=== PATIENT | male | born 1945 | race Caucasian/White ===

== ENCOUNTER 2017-02-15 17:36 | Observation (INO) | payer MEDICARE ==
[~2017-02-15] VITALS: Ht 175.3 cm; Wt 90.5 kg
[~2017-02-15 17:36] MED LIST: ASPI325T; MELA3TAB14; RANI150
[2017-02-15 17:37] VITALS: BP 146/67; PULSE 95; RESP 20; TEMP 98.4; O2SAT 88
[2017-02-15 17:47] VITALS: BP 154/73; PULSE 89; RESP 24; O2SAT 87
[2017-02-15] MEDS ORDERED: VENTAER INH (17:53)
[2017-02-15] MEDS ORDERED: FLUT1INH7 INH (17:53)
[2017-02-15] MEDS ORDERED: LIPI40TA PO (17:53)
[2017-02-15] MEDS ORDERED: OMEP20TA PO (17:53)
[2017-02-15] MEDS ORDERED: IPRASOL INH (17:53)
[2017-02-15 17:54] VITALS: O2SAT 91
--- NOTE | 2017-02-15 18:09 | PD ---
HPI Chief Complaint: Respiratory Symptoms Time Seen by Provider: 17:58 Travel History International Travel<30 days: No Contact w/Intl Traveler<30days: No Traveled to known affect area: No History of Present Illness HPI 71yo M with PMH of COPD, former alcohol abuse presents to the ED with c/o sob for 1 week but worst today. Pt went to PMD today and was sent here after given 1 nebulizer treatment and 1 dose of rocephin. Pt was hypoxic and PMD was concern about pneumonia. Pt has been feeling sick and saw urgent care in [place] and finished his medrol dose pack yesterday. Pt returned from [place] 3 days ago. Intermittent chest tightness. +Cough. Denies any fever, n/v, abdominal pain, focal weakness or numbness, history of PE/DVT. Pt does not use oxygen at home and was saturating at 90-92% on 4L NC. Pt was 87% on RA. PFSH Past Medical History High Cholesterol: Yes COPD: Yes GERD: Yes Immunizations Current: Yes Influenza Vaccination: Yes Past Surgical History Abdominal Surgery: Yes (FOR ANAL FISTULA) Body Medical Devices: ANAL FISTULA Cholecystectomy: Yes Social History Alcohol Use: No Tobacco Use: No Substance Use: No (hx etoh abuse) Allergies-Medications (Allergen,Severity, Reaction): Coded Allergies: No Known Allergies (Verified , 02/15/17) Reported Meds & Prescriptions Reported Meds & Active Scripts Active Reported Ventolin Hfa 18 GM Inh (Albuterol Sulfate) 90 Mcg/Act Aer 2 Puff INH Q4H PRN Breo Ellipta Inh (Fluticasone/Vilanterol) 200-25 Mcg/Act Inh 1 Puff INH DAILY Use daily at the same time. Duoneb (Ipratropium-Albuterol Neb) 0.5-2.5 Mg/3 Ml Neb 1 Nebule INH Q6HR NEB Omeprazole 20 Mg Tab 20 Mg PO DAILY Lipitor (Atorvastatin Calcium) 40 Mg Tab 40 Mg PO HS Review of Systems Except as stated in HPI: all other systems reviewed are Neg Physical Exam Narrative GENERAL: 71yo M in mild distress. SKIN: Warm and dry. HEAD: Atraumatic. Normocephalic. EYES: Pupils equal and round. No scleral icterus. No injection or drainage. ENT: No nasal bleeding or discharge. Mucous membranes pink and moist. NECK: Trachea midline. No JVD. CARDIOVASCULAR: Regular rate and rhythm. No murmur appreciated. RESPIRATORY: Crackles in left lower lung. No wheezing. GASTROINTESTINAL: Abdomen soft, non-tender, nondistended. Hepatic and splenic margins not palpable. MUSCULOSKELETAL: No obvious deformities. No clubbing. No cyanosis. Trace lower ext edema. No calf tenderness. NEUROLOGICAL: Awake and alert. No obvious cranial nerve deficits. Motor grossly within normal limits. Normal speech. PSYCHIATRIC: Appropriate mood and affect; insight and judgment normal. Data Data Last Documented VS Vital Signs Date Time Temp Pulse Resp B/P Pulse Ox O2 Delivery O2 Flow Rate FiO2 02/15/17 19:22 82 18 140/63 92 Nasal Cannula 2 02/15/17 17:37 98.4 Orders Complete Blood Count With Diff (02/15/17 18:04) Basic Metabolic Panel (Bmp) (02/15/17 18:04) B-Type Natriuretic Peptide (02/15/17 18:04) Act Partial Throm Time (Ptt) (02/15/17 18:04) Prothrombin Time / Inr (Pt) (02/15/17 18:04) Magnesium (Mg) (02/15/17 18:04) Ckmb (Isoenzyme) Profile (02/15/17 18:04) Troponin I (02/15/17 18:04) Influenzae A/B Antigen (02/15/17 18:04) Blood Culture (02/15/17 18:04) Iv Access Insert/Monitor (02/15/17 18:04) Electrocardiogram (02/15/17 18:04) Ecg Monitoring (02/15/17 18:04) Oximetry (02/15/17 18:04) Oxygen Administration (02/15/17 18:04) Chest, Single Ap (02/15/17 18:04) Sodium Chloride 0.9% Flush (Ns Flush) (02/15/17 18:15) Methylprednisolone So Succ Inj (Solumedr (02/15/17 18:15) Albuterol-Ipratropium Neb (Duoneb Neb) (02/15/17 18:15) Lactic Acid Sepsis Protocol (02/15/17 18:04) Arterial Blood Gas (Abg) (02/15/17 ) Ct Pulmonary Angiogram (02/15/17 ) Iohexol 350 Inj (Omnipaque 350 Inj) (02/15/17 20:12) Admit Order (Ed Use Only) (02/15/17 20:36) Labs Laboratory Tests Test 02/15/17 02/15/17 02/15/17 18:10 18:12 18:20 White Blood Count 9.7 TH/MM3 Red Blood Count 4.30 MIL/MM3 Hemoglobin 13.3 GM/DL Hematocrit 40.8 % Mean Corpuscular Volume 94.8 FL Mean Corpuscular Hemoglobin 31.0 PG Mean Corpuscular Hemoglobin 32.6 % Concent Red Cell Distribution Width 13.5 % Platelet Count 180 TH/MM3 Mean Platelet Volume 9.5 FL Neutrophils (%) (Auto) 57.3 % Lymphocytes (%) (Auto) 32.2 % Monocytes (%) (Auto) 8.2 % Eosinophils (%) (Auto) 1.9 % Basophils (%) (Auto) 0.4 % Neutrophils # (Auto) 5.6 TH/MM3 Lymphocytes # (Auto) 3.1 TH/MM3 Monocytes # (Auto) 0.8 TH/MM3 Eosinophils # (Auto) 0.2 TH/MM3 Basophils # (Auto) 0.0 TH/MM3 CBC Comment DIFF FINAL Differential Comment Prothrombin Time 11.3 SEC Prothromb Time International 1.0 RATIO Ratio Activated Partial 24.3 SEC Thromboplast Time Sodium Level 140 MEQ/L Potassium Level 3.7 MEQ/L Chloride Level 104 MEQ/L Carbon Dioxide Level 27.2 MEQ/L Anion Gap 9 MEQ/L Blood Urea Nitrogen 22 MG/DL Creatinine 1.15 MG/DL Estimat Glomerular Filtration 63 ML/MIN Rate Random Glucose 107 MG/DL Calcium Level 8.7 MG/DL Magnesium Level 2.0 MG/DL Total Creatine Kinase 72 U/L Troponin I LESS THAN 0.02 NG/ML B-Type Natriuretic Peptide 24 PG/ML Lactic Acid Level 1.1 mmol/L Blood Gas Puncture Site RT RADIAL Blood Gas Patient Temperature 98.6 Blood Gas HCO3 25 mmol/L Blood Gas Base Excess 1.2 mmol/L Blood Gas Oxygen Saturation 91 % Arterial Blood pH 7.44 Arterial Blood Partial 37 mmHg Pressure CO2 Arterial Blood Partial 87 mmHG Pressure O2 Arterial Blood Oxygen Content 17.4 Vol % Arterial Blood 0.8 % Carboxyhemoglobin Arterial Blood Methemoglobin 0.6 % Blood Gas Hemoglobin 13.5 G/DL Oxygen Delivery Device NASAL CANNULA Blood Gas Liter Flow 4 L/M MDM Medical Decision Making Medical Screen Exam Complete: Yes Emergency Medical Condition: Yes Interpretation(s) EKG: NSR 80bpm. Normal axis. Q wave III. No ST segment elevation or depression. Laboratory Tests Test 02/15/17 02/15/17 02/15/17 18:10 18:12 18:20 White Blood Count 9.7 TH/MM3 (4.0-11.0) Red Blood Count 4.30 MIL/MM3 (4.50-5.90) Hemoglobin 13.3 GM/DL (13.0-17.0) Hematocrit 40.8 % (39.0-51.0) Mean Corpuscular Volume 94.8 FL (80.0-100.0) Mean Corpuscular Hemoglobin 31.0 PG (27.0-34.0) Mean Corpuscular Hemoglobin 32.6 % Concent (32.0-36.0) Red Cell Distribution Width 13.5 % (11.6-17.2) Platelet Count 180 TH/MM3 (150-450) Mean Platelet Volume 9.5 FL (7.0-11.0) Neutrophils (%) (Auto) 57.3 % (16.0-70.0) Lymphocytes (%) (Auto) 32.2 % (9.0-44.0) Monocytes (%) (Auto) 8.2 % (0.0-8.0) Eosinophils (%) (Auto) 1.9 % (0.0-4.0) Basophils (%) (Auto) 0.4 % (0.0-2.0) Neutrophils # (Auto) 5.6 TH/MM3 (1.8-7.7) Lymphocytes # (Auto) 3.1 TH/MM3 (1.0-4.8) Monocytes # (Auto) 0.8 TH/MM3 (0-0.9) Eosinophils # (Auto) 0.2 TH/MM3 (0-0.4) Basophils # (Auto) 0.0 TH/MM3 (0-0.2) CBC Comment DIFF FINAL Differential Comment Prothrombin Time 11.3 SEC (9.8-11.6) Prothromb Time International 1.0 RATIO Ratio Activated Partial 24.3 SEC Thromboplast Time (24.3-30.1) Sodium Level 140 MEQ/L (136-145) Potassium Level 3.7 MEQ/L (3.5-5.1) Chloride Level 104 MEQ/L (98-107) Carbon Dioxide Level 27.2 MEQ/L (21.0-32.0) Anion Gap 9 MEQ/L (5-15) Blood Urea Nitrogen 22 MG/DL (7-18) Creatinine 1.15 MG/DL (0.60-1.30) Estimat Glomerular Filtration 63 ML/MIN (>89) Rate Random Glucose 107 MG/DL (74-106) Calcium Level 8.7 MG/DL (8.5-10.1) Magnesium Level 2.0 MG/DL (1.5-2.5) Total Creatine Kinase 72 U/L (39-308) Troponin I LESS THAN 0.02 NG/ML (0.02-0.05) B-Type Natriuretic Peptide 24 PG/ML (0-100) Lactic Acid Level 1.1 mmol/L (0.4-2.0) Blood Gas Puncture Site RT RADIAL Blood Gas Patient Temperature 98.6 Blood Gas HCO3 25 mmol/L (22-26) Blood Gas Base Excess 1.2 mmol/L (-2-2) Blood Gas Oxygen Saturation 91 % (90-100) Arterial Blood pH 7.44 (7.380-7.420) Arterial Blood Partial 37 mmHg (38-42) Pressure CO2 Arterial Blood Partial 87 mmHG Pressure O2 (61-120) Arterial Blood Oxygen Content 17.4 Vol % (12.0-20.0) Arterial Blood 0.8 % (0-4) Carboxyhemoglobin Arterial Blood Methemoglobin 0.6 % (0-2) Blood Gas Hemoglobin 13.5 G/DL (12.0-16.0) Oxygen Delivery Device NASAL CANNULA Blood Gas Liter Flow 4 L/M Last Impressions Chest X-Ray 02/15/17 1804 Signed Impressions: Service Date/Time: Wednesday, February 15, 2017 18:14 - CONCLUSION: No acute cardiopulmonary disease. Chandrakant Cortes MD CT Angiography 02/15/17 0000 Signed Impressions: Service Date/Time: Wednesday, February 15, 2017 19:59 - CONCLUSION: Unremarkable study. Chandrakant Cortes MD Differential Diagnosis Pneumonia vs. COPD exacerbation vs. PE vs. ACS Narrative Course 71yo M with COPD sent from PMD's office for hypoxia and sob. Pt was given dose of rocephin at his PMD's office. Pt was initially saturating at 87% on RA and was placed on 4L NC and saturating at 92%. Pt has mild coarse breath sounds but not wheezing on my exam. Given duonebs x3 and methylprednisolone 125mg IV and states he feels better. CXR showed no acute cardiopulmonary disease. Pt has had recent travel so CT angio ordered to r/o PE. CT angio showed no PE. Pt likely hypoxic from COPD exacerbation. I reevaluated him at bedside and took him off oxygen. Pt starts desaturating to 86-97% off oxygen so placed nasal cannula back on. Pt does not have oxygen at home. Discussed with Dr. Sanchez and accepted to Dr. Price's service. Diagnosis Primary Impression: COPD exacerbation Admitting Information Admitting Physician Requests: Trudy Torres DO Feb 15, 2017 18:09
[2017-02-15] MEDS ORDERED: methylPREDNISolone SOD SUCC 125 MG/2 ML VIAL IVP ONE (18:15)
[2017-02-15] MEDS ORDERED: SODIUM CHLORIDE 0.9% FLUSH 10 ML FLUSH IVF PRN (18:15)
[2017-02-15 18:20] VITALS: O2SAT 92
[2017-02-15] MEDS: RESP: ALBUTEROL 2.5 MG/IPRATROPIUM 0.5 MG NEB (SCH) INH ×2 (18:20→18:30)
[2017-02-15 18:32] LABS: BLOOD GAS BASE EXCESS 1.2 mmol/L (-2-2); BLOOD GAS CARBOXYHEMOGLOBIN 0.8 % (0-4); BLOOD GAS HCO3 25 mmol/L (22-26); BLOOD GAS METHEMOGLOBIN 0.6 % (0-2); BLOOD GAS O2 HGB SATURATION 91 % (90-100); BLOOD GAS OXYGEN CONTENT 17.4 Vol % (12.0-20.0); BLOOD GAS PCO2 37 mmHg (38-42); BLOOD GAS PO2 87 mmHG (61-120); BLOOD GAS TOTAL HGB 13.5 G/DL (12.0-16.0); CRITICAL VALUE NO; DRAW SITE RT RADIAL; LITER FLOW 4 L/M; NUMBER OF ARTERIAL PUNCTURES 1; OXYGEN DEVICE NASAL CANNULA; STAT YES; TEMP CORR TO 98.6; ULNAR PULSE PRESENT
[2017-02-15 18:36] LABS: AUTOMATED NEUTROPHIL # 5.6 TH/MM3 (1.8-7.7); BASOPHIL % 0.4 % (0.0-2.0); EOSINOPHIL # 0.2 TH/MM3 (0-0.4); EOSINOPHIL % 1.9 % (0.0-4.0); HEMATOCRIT 40.8 % (39.0-51.0); HEMO FLAGS DIFF FINAL; LYMPH % 32.2 % (9.0-44.0); LYMPHOCYTE # 3.1 TH/MM3 (1.0-4.8); MEAN CELL VOLUME 94.8 FL (80.0-100.0); MEAN CORPUSCULAR HGB CONC 32.6 % (32.0-36.0); MONO % 8.2 % (0.0-8.0); NEUT % 57.3 % (16.0-70.0); PLATELET COUNT 180 TH/MM3 (150-450); RED CELL DISTRIBUTION WIDTH 13.5 % (11.6-17.2); WHITE BLOOD COUNT 9.7 TH/MM3 (4.0-11.0)
--- NOTE | 2017-02-15 18:47 | RADRPT ---
EXAM DATE/TIME: 02/15/2017 18:14 [facility] COMPARISON: No previous studies available for comparison. INDICATIONS : Short of breath. MEDICAL HISTORY : Chronic obstructive pulmonary disease. SURGICAL HISTORY : None. ENCOUNTER: Initial ACUITY: 4 - 6 days PAIN SCORE: 0/10 LOCATION: Bilateral chest FINDINGS: The lungs are clear without infiltrate, nodule, or mass. There is no appreciable pleural effusion fo r technique. Heart and mediastinum are unremarkable. CONCLUSION: No acute cardiopulmonary disease. Chandrakant Cortes MD on February 15, 2017 at 18:45 Board Certified Radiologist. This report was verified electronically.
[2017-02-15 18:54] LABS: APTT (PATIENT) 24.3 SEC (24.3-30.1); PROTHROMBIN TIME - PATIENT 11.3 SEC (9.8-11.6)
[2017-02-15 19:00] LABS: ANION GAP 9 MEQ/L (5-15); BICARBONATE 27.2 MEQ/L (21.0-32.0); BLOOD UREA NITROGEN 22 MG/DL (7-18); CHLORIDE 104 MEQ/L (98-107); GLOMERULAR FILTRATION RATE 63 ML/MIN (>89); POTASSIUM 3.7 MEQ/L (3.5-5.1); SODIUM (NA) 140 MEQ/L (136-145)
[2017-02-15 19:07] LABS: CREATINE KINASE 72 U/L (39-308)
[2017-02-15 19:22] VITALS: BP 140/63; PULSE 82; RESP 18; O2SAT 92
[2017-02-15] MEDS ORDERED: IOHEXOL 350 MG/ML 10 ML VIAL (for RAD DIAG) IV ONE (20:12)
--- NOTE | 2017-02-15 20:27 | RADRPT ---
EXAM DATE/TIME: 02/15/2017 19:59 [facility] COMPARISON: No previous studies available for comparison. INDICATIONS : Shortness of breath and chest pain. IV CONTRAST: 75 cc Omnipaque 350 (iohexol) IV RADIATION DOSE: 23.28 CTDIvol (mGy) MEDICAL HISTORY : Gastroesophageal reflux disease. SURGICAL HISTORY : Cholecystectomy. ENCOUNTER: Initial ACUITY: 1 day PAIN SCALE: 5/10 LOCATION: chest TECHNIQUE: Volumetric scanning of the chest was performed using a pulmonary embolism protocol MIP images were re constructed. Using automated exposure control and adjustment of the mA and/or kV according to patien t size, radiation dose was kept as low as reasonably achievable to obtain optimal diagnostic quality images. FINDINGS: The lungs are clear without infiltrate, nodule, or mass. There is no pleural effusion. No appreciab le pathological adenopathy is seen within the mediastinum. There is no evidence for PE for technique. CONCLUSION: Unremarkable study. Chandrakant Cortes MD on February 15, 2017 at 20:23 Board Certified Radiologist. This report was verified electronically.
[2017-02-15] MEDS ORDERED: POTASSIUM CHLORIDE 10 MEQ CONTROLLED RELEASE TAB PO ONE (21:15)
[2017-02-15] MEDS ORDERED: SODIUM CHLORIDE 0.9% FLUSH 10 ML FLUSH IV FLUSH PRN (21:15)
[2017-02-15] MEDS ORDERED: RESP: ALBUTEROL 2.5 MG/3 ML NEB (PRN) INH (21:15)
[2017-02-15] MEDS ORDERED: RESP: ALBUTEROL 2.5 MG/IPRATROPIUM 0.5 MG NEB (PRN) ONE (21:18)
--- NOTE | 2017-02-15 21:21 | HHI.HP ---
HPI Service CP Hospitalists Primary Care Physician Whit Mercado Admission Diagnosis COPD exacerbation Chief Complaint: SOB, sent from PCP office due to low oxygen levels Travel History International Travel<30 Days: No Contact w/Intl Traveler <30 Da: No Traveled to Known Affected Are: No History of Present Illness 71yo M with PMH of COPD, distant former alcohol abuse presents to the ED with c/ o sob for 1 1/2 weeks but worse last 2 days. Pt went to PMD today for his typical annual exam and was sent here after given 1 nebulizer treatment and 1 dose of rocephin. Pt was hypoxic with sats in upper 80s and PMD was concerned about possible pneumonia with COPD exac. Pt has been feeling sick for 1.5 weeks and saw urgent care in [place] 1 week ago and finished his medrol dose pack and zpack yesterday. Pt returned from [place] 3 days ago. Intermittent chest tightness with wheezing. +Cough. Feels like he usually does when he has COPD exac. No dull, heavy chest pain. Denies any fever, n/v, abdominal pain, focal weakness or numbness, history of PE/DVT. Pt does not use oxygen at home and has been saturating at 90-92% on 4L NC here. Pt was 87% on RA as outpt. He reports that his baseline RA sat is around 89-91%, but he does feel more SOB of late. No orthopnea or edema. No hemoptysis. Feels much better since receiving steroids and neb txs here in ER with supplemental oxygen. CXR and CTA chest negative. Review of Systems Constitutional: COMPLAINS OF: Chills, DENIES: Diaphoretic episodes, Fatigue, Fever, Weight gain, Weight loss, Dizziness, Change in appetite, Night Sweats Endocrine: DENIES: Heat/cold intolerance, Polydipsia, Polyuria, Polyphagia Eyes: DENIES: Blurred vision, Diplopia, Eye inflammation, Eye pain, Vision loss , Photosensitivity, Double Vision Ears, nose, mouth, throat: DENIES: Tinnitus, Hearing loss, Vertigo, Nasal discharge, Oral lesions, Throat pain, Hoarseness, Ear Pain, Running Nose, Epistaxis, Sinus Pain, Toothache, Odynophagia Respiratory: COMPLAINS OF: Cough, Wheezing, Shortness of breath, DENIES: Apneas, Snoring, Hemoptysis, Sputum production Cardiovascular: COMPLAINS OF: Chest pain, DENIES: Palpitations, Syncope, Dyspnea on Exertion, PND, Lower Extremity Edema, Orthopnea, Claudication Gastrointestinal: DENIES: Abdominal pain, Black stools, Bloody stools, BRB per rectum, Constipation, Diarrhea, GERD, Nausea, Reflux, Vomiting, Difficulty Swallowing, Anorexia, See HPI Integumentary: DENIES: Abnormal pigmentation, Nail changes, Pruritus, Rash Hematologic/lymphatic: DENIES: Bruising, Lymphadenopathy Immunologic/allergic: DENIES: Eczema, Urticaria Neurologic: DENIES: Abnormal gait, Headache, Localized weakness, Paresthesias, Seizures, Speech Problems, Tremor, Poor Balance Psychiatric: DENIES: Anxiety, Confusion, Mood changes, Depression, Hallucinations, Agitation, Suicidal Ideation, Homicidal Ideation, Delusions, History of Bipolar, History of Schizophrenia Past Family Social History Past Medical History GERD Hyperlipidemia COPD Past Surgical History carmen diaz Aug 2016 in [place], [place] Anal fistulotomy in 1970s Reported Medications Ventolin Hfa 18 GM Inh (Albuterol Sulfate) 90 Mcg/Act Aer 2 Puff INH Q4H PRN Breo Ellipta Inh (Fluticasone/Vilanterol) 200-25 Mcg/Act Inh 1 Puff INH DAILY Use daily at the same time. Duoneb (Ipratropium-Albuterol Neb) 0.5-2.5 Mg/3 Ml Neb 1 Nebule INH Q6HR NEB Omeprazole 20 Mg Tab 20 Mg PO DAILY Lipitor (Atorvastatin Calcium) 40 Mg Tab 40 Mg PO HS Allergies: Coded Allergies: No Known Allergies (Verified , 02/15/17) Family History n/c Social History No tobacco in 23 yrs, prior to that smoked 1ppd for 30 yrs. 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 a/o. SKIN: No rashes, ecchymoses or lesions. Cool and dry. HEAD: Atraumatic. Normocephalic. No temporal or scalp tenderness. EYES: Pupils equal round and reactive. Extraocular motions intact. No scleral icterus. No injection or drainage. ENT: Nose without bleeding, purulent drainage or septal hematoma. Airway patent. NECK: Trachea midline. No JVD or lymphadenopathy. Supple, nontender, no meningeal signs. CARDIOVASCULAR: Regular rate and rhythm without murmurs, gallops, or rubs. RESPIRATORY: Prolonged expiratory phase with few wheezes. Breath sounds equal bilaterally. No fine crackles. Coarse BS at bases. GASTROINTESTINAL: Abdomen soft, non-tender, nondistended. No hepato-splenomegaly , or palpable masses. No guarding. MUSCULOSKELETAL: Extremities without clubbing, cyanosis, or edema. No joint tenderness, effusion, or edema noted. No calf tenderness. NEUROLOGICAL: Awake and alert. Cranial nerves II through XII intact. Motor and sensory grossly within normal limits. Five out of 5 muscle strength in all muscle groups. Normal speech. Laboratory Laboratory Tests Test 02/15/17 02/15/17 02/15/17 18:10 18:12 18:20 White Blood Count 9.7 Red Blood Count 4.30 Hemoglobin 13.3 Hematocrit 40.8 Mean Corpuscular Volume 94.8 Mean Corpuscular Hemoglobin 31.0 Mean Corpuscular Hemoglobin 32.6 Concent Red Cell Distribution Width 13.5 Platelet Count 180 Mean Platelet Volume 9.5 Neutrophils (%) (Auto) 57.3 Lymphocytes (%) (Auto) 32.2 Monocytes (%) (Auto) 8.2 Eosinophils (%) (Auto) 1.9 Basophils (%) (Auto) 0.4 Neutrophils # (Auto) 5.6 Lymphocytes # (Auto) 3.1 Monocytes # (Auto) 0.8 Eosinophils # (Auto) 0.2 Basophils # (Auto) 0.0 CBC Comment DIFF FINAL Differential Comment Prothrombin Time 11.3 Prothromb Time International 1.0 Ratio Activated Partial 24.3 Thromboplast Time Sodium Level 140 Potassium Level 3.7 Chloride Level 104 Carbon Dioxide Level 27.2 Anion Gap 9 Blood Urea Nitrogen 22 Creatinine 1.15 Estimat Glomerular Filtration 63 Rate Random Glucose 107 Calcium Level 8.7 Magnesium Level 2.0 Total Creatine Kinase 72 Troponin I LESS THAN 0.02 B-Type Natriuretic Peptide 24 Lactic Acid Level 1.1 Blood Gas Puncture Site RT RADIAL Blood Gas Patient Temperature 98.6 Blood Gas HCO3 25 Blood Gas Base Excess 1.2 Blood Gas Oxygen Saturation 91 Arterial Blood pH 7.44 Arterial Blood Partial 37 Pressure CO2 Arterial Blood Partial 87 Pressure O2 Arterial Blood Oxygen Content 17.4 Arterial Blood 0.8 Carboxyhemoglobin Arterial Blood Methemoglobin 0.6 Blood Gas Hemoglobin 13.5 Oxygen Delivery Device NASAL CANNULA Blood Gas Liter Flow 4 Date/Time Procedure Status Source Growth 02/15/17 18:10 Influenza Types A,B Antigen (KRISTIN) - Final Complete Nasal Aspirate NEGATIVE FOR FLU A AND B ANTIGEN.... 02/15/17 18:10 Aerobic Blood Culture Received Blood Peripheral Pending 02/15/17 18:10 Anaerobic Blood Culture Received Blood Peripheral Pending Result Diagram: 02/15/17 1810 02/15/17 1810 Imaging Last 72 hours Impressions Chest X-Ray 02/15/17 1804 Signed Impressions: Service Date/Time: Wednesday, February 15, 2017 18:14 - CONCLUSION: No acute cardiopulmonary disease. Chnadrakant Cortes MD CT Angiography 02/15/17 0000 Signed Impressions: Service Date/Time: Wednesday, February 15, 2017 19:59 - CONCLUSION: Unremarkable study. Chandrakant Cortes MD Assessment and Plan Problem List: (1) COPD exacerbation Status: Acute Plan: Clinically doing better. Will provide supplemental oxygen, steroids, nebs , abx. Hopefully d/c home tomorrow. (2) Hyperlipemia Status: Chronic Plan: continue Atorvastatin. Outpt f/u. (3) GERD (gastroesophageal reflux disease) Status: Chronic Plan: continue ppi Assessment and Plan hopefully d/c home tomorrow. Code Status full Discussed Condition With Pt and ER physician Problem Qualifiers (1) Hyperlipemia: Qualified Code: E78.00 - Pure hypercholesterolemia Efren Sanchez MD PhD Feb 15, 2017 21:21
[2017-02-15] MEDS: methylPREDNISolone SOD SUCC 125 MG/2 ML VIAL IVP SCH (23:03)
[2017-02-15] MEDS: ENOXAPARIN SODIUM 30 MG/0.3 ML SYRINGE SQ SCH (23:04)
[2017-02-15] MEDS: cefTRIAXone INJ 1,000 MG in SODIUM CHLORIDE 0.9% INJ 100 ML IV SCH (23:04)
[2017-02-15 23:39] VITALS: PULSE 75
[2017-02-16] VITALS (12 sets, daily range): BP systolic 133–155; BP diastolic 62–70; PULSE 75–104; RESP 16–20; TEMP 97.6–98.1; O2SAT 88–95
[2017-02-16] MEDS: RESP: ALBUTEROL 2.5 MG/IPRATROPIUM 0.5 MG NEB (SCH) INH ×5 (03:20→15:29)
[2017-02-16] MEDS: methylPREDNISolone SOD SUCC 125 MG/2 ML VIAL IVP SCH ×3 (05:22→21:26)
[2017-02-16] MEDS: SODIUM CHLORIDE 0.9% FLUSH 10 ML FLUSH IV FLUSH SCH ×2 (09:00→21:00)
--- NOTE | 2017-02-16 09:00 | HHI.PR ---
Subjective Remarks Pt reports that he is feeling better overall. He is still on supplemental O2, 2L sating at 88% Pt states that he wants to go home today. Objective Vitals Vital Signs Date Time Temp Pulse Resp B/P Pulse Ox O2 Delivery O2 Flow Rate FiO2 02/16/17 08:42 98.0 89 20 141/70 88 02/16/17 08:16 92 Nasal Cannula 2.00 02/16/17 07:51 97.7 87 18 138/64 91 02/16/17 01:40 92 Nasal Cannula 2.00 02/15/17 23:39 75 02/15/17 19:22 82 18 140/63 92 Nasal Cannula 2 02/15/17 18:20 92 Nasal Cannula 4.00 02/15/17 17:54 91 Nasal Cannula 4 02/15/17 17:47 89 24 154/73 87 Room Air 02/15/17 17:37 98.4 95 20 146/67 88 Room Air Result Diagram: 02/15/17 1810 02/15/17 1810 Other Results Laboratory Tests Test 02/15/17 02/15/17 02/15/17 18:10 18:12 18:20 White Blood Count 9.7 TH/MM3 Red Blood Count 4.30 MIL/MM3 Hemoglobin 13.3 GM/DL Hematocrit 40.8 % Mean Corpuscular Volume 94.8 FL Mean Corpuscular Hemoglobin 31.0 PG Mean Corpuscular Hemoglobin 32.6 % Concent Red Cell Distribution Width 13.5 % Platelet Count 180 TH/MM3 Mean Platelet Volume 9.5 FL Neutrophils (%) (Auto) 57.3 % Lymphocytes (%) (Auto) 32.2 % Monocytes (%) (Auto) 8.2 % Eosinophils (%) (Auto) 1.9 % Basophils (%) (Auto) 0.4 % Neutrophils # (Auto) 5.6 TH/MM3 Lymphocytes # (Auto) 3.1 TH/MM3 Monocytes # (Auto) 0.8 TH/MM3 Eosinophils # (Auto) 0.2 TH/MM3 Basophils # (Auto) 0.0 TH/MM3 CBC Comment DIFF FINAL Differential Comment Prothrombin Time 11.3 SEC Prothromb Time International 1.0 RATIO Ratio Activated Partial 24.3 SEC Thromboplast Time Sodium Level 140 MEQ/L Potassium Level 3.7 MEQ/L Chloride Level 104 MEQ/L Carbon Dioxide Level 27.2 MEQ/L Anion Gap 9 MEQ/L Blood Urea Nitrogen 22 MG/DL Creatinine 1.15 MG/DL Estimat Glomerular Filtration 63 ML/MIN Rate Random Glucose 107 MG/DL Calcium Level 8.7 MG/DL Magnesium Level 2.0 MG/DL Total Creatine Kinase 72 U/L Troponin I LESS THAN 0.02 NG/ML B-Type Natriuretic Peptide 24 PG/ML Lactic Acid Level 1.1 mmol/L Blood Gas Puncture Site RT RADIAL Blood Gas Patient Temperature 98.6 Blood Gas HCO3 25 mmol/L Blood Gas Base Excess 1.2 mmol/L Blood Gas Oxygen Saturation 91 % Arterial Blood pH 7.44 Arterial Blood Partial 37 mmHg Pressure CO2 Arterial Blood Partial 87 mmHG Pressure O2 Arterial Blood Oxygen Content 17.4 Vol % Arterial Blood 0.8 % Carboxyhemoglobin Arterial Blood Methemoglobin 0.6 % Blood Gas Hemoglobin 13.5 G/DL Oxygen Delivery Device NASAL CANNULA Blood Gas Liter Flow 4 L/M Imaging Last 72 hours Impressions Chest X-Ray 02/15/17 1804 Signed Impressions: Service Date/Time: Wednesday, February 15, 2017 18:14 - CONCLUSION: No acute cardiopulmonary disease. Chandrakant Cortes MD CT Angiography 02/15/17 0000 Signed Impressions: Service Date/Time: Wednesday, February 15, 2017 19:59 - CONCLUSION: Unremarkable study. Chandrakant Cortes MD Objective Remarks General: NAD, AAOx3 Chest: Minimal wheezing bilaterally Cardiac: Regular Abd: +BS, soft ND/NT Ext: No edema A/P Problem List: (1) COPD exacerbation Status: Acute Plan: - Pt admitted with increased SOB x 1 week which began while he was on vacation in [place], [place] - While in [place] he was seen at a walk in clinic and was prescribed Medrol dose pack and a Z-stacey which he completed but symptoms did not improve. - He was seen at his PCP, Dr. Mercado's, office yesterday and given a breathing treatment and a dose of Rocephin and sent to the ED. - Pt was given Solu-Medrol 125mg in the ED and Duoneb treatments with some improvement. - He was continued on Solu-Medrol 60mg Q8H, Rocephin and Duonebs Q4H - CTA was negative for PE - Clinically he is doing better. - Pt is still on 2L supplemental O2 and sating in the high 80's. He is not normally on supplemental O2 at home. - Cont. current regimen. - Monitor clinical status - Anticipate d/c to home in the next 1-2 days. (2) Hyperlipemia Status: Chronic Plan: - continue Atorvastatin. (3) GERD (gastroesophageal reflux disease) Status: Chronic Plan: - continue ppi Assessment and Plan Patient examined. Assessment and plan formulated with Lora George PA-C. I agree with the above. still hypoxic from copd exac. will do walk test and determine if needs home o2. will d/c tonight or attempt weaning of o2 and in AM. Problem Qualifiers (1) Hyperlipemia: Qualified Code: E78.00 - Pure hypercholesterolemia Lora George Feb 16, 2017 09:00 Tereso Price MD Feb 16, 2017 14:29
[2017-02-16] MEDS: PANTOPRAZOLE SOD 20 MG DELAYED RELEASE TAB PO SCH (09:51)
--- NOTE | 2017-02-16 10:03 | EKG ---
Date Performed: 02/15/2017 Time Performed: 18:41:01 PTAGE: 71 years EKG: Sinus rhythm NORMAL ECG PREVIOUS TRACING : 10/12/2009 10.47 DOCTOR: Jf Richard Interpretating Date/Time 02/16/2017 10:01:32
[2017-02-16] MEDS ORDERED: ATORVASTATIN 40 MG TAB PO SCH (21:00)
[2017-02-16] MEDS: ENOXAPARIN SODIUM 30 MG/0.3 ML SYRINGE SQ SCH (21:27)
[2017-02-16] MEDS: cefTRIAXone INJ 1,000 MG in SODIUM CHLORIDE 0.9% INJ 100 ML IV SCH (21:27)
[2017-02-17] MEDS: RESP: ALBUTEROL 2.5 MG/IPRATROPIUM 0.5 MG NEB (SCH) INH ×5 (00:32→16:00)
[2017-02-17] MEDS: methylPREDNISolone SOD SUCC 125 MG/2 ML VIAL IVP SCH ×2 (03:16→09:34)
[2017-02-17 04:11] VITALS: BP 114/56; PULSE 94; RESP 20; TEMP 97.7; O2SAT 95
[2017-02-17 07:41] VITALS: O2SAT 90
[2017-02-17 08:00] VITALS: PULSE 74
[2017-02-17 08:24] VITALS: BP 123/74; PULSE 106; RESP 16; TEMP 97.5; O2SAT 89
[2017-02-17] MEDS ORDERED: PRED10 PO (08:50)
--- NOTE | 2017-02-17 08:52 | HHI.DCPOC ---
Discharge Care Plan Diagnosis: (1) Hyperlipemia (2) GERD (gastroesophageal reflux disease) (3) COPD exacerbation Goals to Promote Your Health * To prevent worsening of your condition and complications * To maintain your health at the optimal level Directions to Meet Your Goals Take your medications as prescribed Follow your dietary instruction Follow activity as directed Keep your appointments as scheduled Take your immunizations and boosters as scheduled If your symptoms worsen call your PCP, if no PCP go to Urgent Care Center or Emergency Room Smoking is Dangerous to Your Health. Avoid second hand smoke Call the 24-hour hour crisis hotline for domestic abuse at Lora George Feb 17, 2017 08:52
--- NOTE | 2017-02-17 08:58 | HHI.PR ---
Subjective Remarks Pt is still requiring 2L of supplemental O2 He states that he wants to go home today even if that means he has to go home on supplemental O2 Objective Vitals Vital Signs Date Time Temp Pulse Resp B/P Pulse Ox O2 Delivery O2 Flow Rate FiO2 02/17/17 08:24 97.5 106 16 123/74 89 02/17/17 07:41 90 Nasal Cannula 2.00 02/17/17 04:11 97.7 94 20 114/56 95 02/16/17 23:56 98.1 86 20 155/67 95 02/16/17 20:11 92 02/16/17 20:00 87 02/16/17 19:14 97.8 92 20 140/64 91 02/16/17 15:15 97.6 87 16 133/63 91 02/16/17 15:00 97 02/16/17 14:22 2.00 02/16/17 11:27 98.0 104 18 135/62 91 02/16/17 02/16/17 02/17/17 15:00 23:00 07:00 Intake Total 600 ml Output Total 525 ml Balance 600 ml -525 ml Intake Oral 600 ml Output Urine Total 525 ml # Voids 3 # Bowel Movements 0 Result Diagram: 02/15/17 1810 02/15/171809 Other Results Laboratory Tests Test 02/15/17 02/15/17 02/15/17 18:10 18:12 18:20 White Blood Count 9.7 TH/MM3 Red Blood Count 4.30 MIL/MM3 Hemoglobin 13.3 GM/DL Hematocrit 40.8 % Mean Corpuscular Volume 94.8 FL Mean Corpuscular Hemoglobin 31.0 PG Mean Corpuscular Hemoglobin 32.6 % Concent Red Cell Distribution Width 13.5 % Platelet Count 180 TH/MM3 Mean Platelet Volume 9.5 FL Neutrophils (%) (Auto) 57.3 % Lymphocytes (%) (Auto) 32.2 % Monocytes (%) (Auto) 8.2 % Eosinophils (%) (Auto) 1.9 % Basophils (%) (Auto) 0.4 % Neutrophils # (Auto) 5.6 TH/MM3 Lymphocytes # (Auto) 3.1 TH/MM3 Monocytes # (Auto) 0.8 TH/MM3 Eosinophils # (Auto) 0.2 TH/MM3 Basophils # (Auto) 0.0 TH/MM3 CBC Comment DIFF FINAL Differential Comment Prothrombin Time 11.3 SEC Prothromb Time International 1.0 RATIO Ratio Activated Partial 24.3 SEC Thromboplast Time Sodium Level 140 MEQ/L Potassium Level 3.7 MEQ/L Chloride Level 104 MEQ/L Carbon Dioxide Level 27.2 MEQ/L Anion Gap 9 MEQ/L Blood Urea Nitrogen 22 MG/DL Creatinine 1.15 MG/DL Estimat Glomerular Filtration 63 ML/MIN Rate Random Glucose 107 MG/DL Calcium Level 8.7 MG/DL Magnesium Level 2.0 MG/DL Total Creatine Kinase 72 U/L Troponin I LESS THAN 0.02 NG/ML B-Type Natriuretic Peptide 24 PG/ML Lactic Acid Level 1.1 mmol/L Blood Gas Puncture Site RT RADIAL Blood Gas Patient Temperature 98.6 Blood Gas HCO3 25 mmol/L Blood Gas Base Excess 1.2 mmol/L Blood Gas Oxygen Saturation 91 % Arterial Blood pH 7.44 Arterial Blood Partial 37 mmHg Pressure CO2 Arterial Blood Partial 87 mmHG Pressure O2 Arterial Blood Oxygen Content 17.4 Vol % Arterial Blood 0.8 % Carboxyhemoglobin Arterial Blood Methemoglobin 0.6 % Blood Gas Hemoglobin 13.5 G/DL Oxygen Delivery Device NASAL CANNULA Blood Gas Liter Flow 4 L/M Imaging Last 72 hours Impressions Chest X-Ray 02/15/17 1804 Signed Impressions: Service Date/Time: Wednesday, February 15, 2017 18:14 - CONCLUSION: No acute cardiopulmonary disease. Chandrakant Cortes MD CT Angiography 02/15/17 0000 Signed Impressions: Service Date/Time: Wednesday, February 15, 2017 19:59 - CONCLUSION: Unremarkable study. Chandrakant Cortes MD Objective Remarks General: NAD, AAOx3 Chest: No wheezing Cardiac: Regular Abd: +BS, soft ND/NT Ext: No edema A/P Problem List: (1) COPD exacerbation Status: Acute Plan: - Pt admitted with increased SOB x 1 week which began while he was on vacation in [place], [place] - While in [place] he was seen at a walk in clinic and was prescribed Medrol dose pack and a Z-stacey which he completed but symptoms did not improve. - He was seen at his PCP, Dr. Mercado's, office yesterday and given a breathing treatment and a dose of Rocephin and sent to the ED. - Pt was given Solu-Medrol 125mg in the ED and Duoneb treatments with some improvement. - He was continued on Solu-Medrol 60mg Q8H, Rocephin and Duonebs Q4H - CTA was negative for PE - Clinically he is doing better. - Pt is still on 2L supplemental O2 and sating in the high 80's. He is not normally on supplemental O2 at home. - Pt stayed last night to try to wean off the supplemental O2 but was unable to do so - He wants to be discharged home today. - Walk test this morning and case management to arrange supplemental O2 - Pt will continue a prednisone taper 30mg BID x 4 days --> 20mg BID x 4 days-- > 10mg BID x 4 day --> 10mg daily x 4 days, then stop - He will need to continue the Duoneb breathing treatments 4 times daily until he is able to come off the supplemental O2, then can be used PRN - Pt will need to followup with his PCP, Dr. Mercado, in 1 week for repeat walk test and re-evaluation. (2) Hyperlipemia Status: Chronic Plan: - continue Atorvastatin. (3) GERD (gastroesophageal reflux disease) Status: Chronic Plan: - continue ppi Assessment and Plan Patient examined. Assessment and plan formulated with Lora George PA-C. I agree with the above. copd flare improved. failed walk test. d/c home on o2 and f/u pcp for recheck abx/steroid taper. Problem Qualifiers (1) Hyperlipemia: Qualified Code: E78.00 - Pure hypercholesterolemia Lora George Feb 17, 2017 08:58 Tereso Price MD Feb 17, 2017 13:43
[2017-02-17] MEDS ORDERED: PULSE OXIMETER1 MI1 (09:00)
[2017-02-17] MEDS: SODIUM CHLORIDE 0.9% FLUSH 10 ML FLUSH IV FLUSH SCH (09:00)
[2017-02-17] MEDS ORDERED: IPRASOL INH (09:00)
[2017-02-17] MEDS ORDERED: OXYGENTANK NAS.CANULA (09:00)
[2017-02-17] MEDS: PANTOPRAZOLE SOD 20 MG DELAYED RELEASE TAB PO SCH (09:33)
[2017-02-17 11:21] VITALS: BP 146/64; PULSE 93; RESP 16; TEMP 98.1; O2SAT 92
[2017-02-17] MEDS ORDERED: LEVA500T PO (13:09)
[2017-02-17 15:00] VITALS: PULSE 75
== END 2017-02-17 16:30 | disposition home or self-care (01) ==
LOC: NEPA 17:36 → NEDA 20:37 → NEPHCDU 22:31
PROVIDERS: ADMIT Hospitalist; ATTEND Hospitalist
DX: J44.1 Chronic obstructive pulmonary disease with (acute) exacerbation (principal); K21.9 Gastro-esophageal reflux disease without esophagitis; E78.5 Hyperlipidemia, unspecified; F17.200 Nicotine dependence, unspecified, uncomplicated; E78.00 Pure hypercholesterolemia, unspecified; Z79.51 Long term (current) use of inhaled steroids
CPT/HCPCS: 36600; 71010; 71275; 80048; 82550; 82805; 83605; 83735; 83880; 84484; 85025; 85610; 85730; 86403; 87040; 87077; 87185; 87186; 87205; 87804; 93005; 94620; 94640; 94664; 96374; G0378; J0696; J1650; J2930; J7613; Q9967

== ENCOUNTER 2017-04-26 07:23 | Emergency (ER) | payer MEDICARE ==
[~2017-04-26] VITALS: Ht 175.3 cm; Wt 93.3 kg
[~2017-04-26 07:23] MED LIST changes: -ASPI325T; +FLUT1INH7 INH; +IPRASOL INH; +LEVA500T PO; +LIPI40TA PO; -MELA3TAB14; +OMEP20TA PO; +OXYGENTANK NAS.CANULA; +PRED10 PO; +PULSE OXIMETER1 MI1; -RANI150; +VENTAER INH
[2017-04-26 07:26] VITALS: BP 134/80; PULSE 106; RESP 24; TEMP 98.3; O2SAT 90
[2017-04-26 07:39] VITALS: PULSE 99; RESP 20; O2SAT 90
--- NOTE | 2017-04-26 07:50 | PD ---
HPI Chief Complaint: GI Complaint Time Seen by Provider: 07:35 Travel History International Travel<30 days: No Contact w/Intl Traveler<30days: No Traveled to known affect area: No History of Present Illness HPI Patient is a 71-year-old male with history of COPD, hyperlipidemia, GERD who presents to emergency room with complaints of rectal bleeding. Patient reports that he woke up this morning and had a large bowel movement and then took a shower. Reports that after he got out of the shower, he noticed bright red blood on his towel. Reports that "I have history of hemorrhoids in the past." Patient reports that he feels panicked and lightheaded when he saw this blood, reports that he currently is not on any anticoagulants at this time. Patient with no chest pain or shortness of breath, no dizziness. Patient with no other complaints at this time. Patient reports that he did have a colonoscopy 3-4 years ago and reports that it was negative. PFSH Past Medical History Asthma: No Blood Disorders: No Cancer: No Cardiovascular Problems: No High Cholesterol: Yes Congestive Heart Failure: No COPD: Yes Coronary Artery Disease: No Diabetes: No Diminished Hearing: No Endocrine: No GERD: Yes Genitourinary: No Immune Disorder: No Musculoskeletal: No Neurologic: No Psychiatric: No Reproductive: No Respiratory: Yes (COPD) Immunizations Current: Yes Sleep Apnea: Yes Thyroid Disease: No Influenza Vaccination: Yes ?: Not Past Surgical History Abdominal Surgery: Yes (FOR ANAL FISTULA) Body Medical Devices: ANAL FISTULA Cholecystectomy: Yes Other Surgery: Yes (ANITRA) Social History Alcohol Use: No Tobacco Use: No Substance Use: Yes Allergies-Medications (Allergen,Severity, Reaction): Coded Allergies: No Known Allergies (Verified , 04/26/17) Reported Meds & Prescriptions Reported Meds & Active Scripts Active Oxygen tank (Oxygen) 1 Ea Tank 2 Liter VANESSA.CANULA CONTINUOUS Oxygen Concentrator Portable Gaseous 2 L/min via Nasal Cannula Continuous For 99 months Duoneb (Ipratropium-Albuterol Neb) 0.5-2.5 Mg/3 Ml Neb 1 Nebule INH Q6HR NEB Use 4 times daily until able to be weaned off supplemental O2, then can resume Q6H PRN Reported Ventolin Hfa 18 GM Inh (Albuterol Sulfate) 90 Mcg/Act Aer 2 Puff INH Q4H PRN Breo Ellipta Inh (Fluticasone/Vilanterol) 200-25 Mcg/Act Inh 1 Puff INH DAILY Use daily at the same time. Omeprazole 20 Mg Tab 20 Mg PO DAILY Lipitor (Atorvastatin Calcium) 40 Mg Tab 40 Mg PO HS Review of Systems General / Constitutional: No: Fever Eyes: No: Visual changes HENT: No: Headaches Cardiovascular: No: Chest Pain or Discomfort Respiratory: No: Shortness of Breath Gastrointestinal: Positive: Hematochezia, No: Nausea, Vomiting, Diarrhea, Abdominal Pain, Hematemesis Genitourinary: Positive: Other (rectal bleeding), No: Dysuria Musculoskeletal: No: Pain Skin: No Rash Neurologic: No: Weakness Psychiatric: No: Depression Endocrine: No: Polydipsia Hematologic/Lymphatic: No: Easy Bruising Physical Exam Narrative GENERAL: NAD, Nontoxic SKIN: Focused skin assessment warm/dry. HEAD: Atraumatic. Normocephalic. EYES: Pupils equal and round. No scleral icterus. No injection or drainage. ENT: No nasal bleeding or discharge. Mucous membranes pink and moist. NECK: Trachea midline. No JVD. CARDIOVASCULAR: Regular rate and rhythm. No murmur appreciated. RESPIRATORY: No accessory muscle use. Clear to auscultation. Breath sounds equal bilaterally. GASTROINTESTINAL: Abdomen soft, non-tender, nondistended. Hepatic and splenic margins not palpable. Patient with nonthrombosed, irritated external hemorrhoids, no active bleeding at this time. Patient with negative Hemoccult, light brown stool on exam MUSCULOSKELETAL: No obvious deformities. No clubbing. No cyanosis. No edema. NEUROLOGICAL: Awake and alert. No obvious cranial nerve deficits. Motor grossly within normal limits. Normal speech. PSYCHIATRIC: Appropriate mood and affect; insight and judgment normal. Data Data Last Documented VS Vital Signs Date Time Temp Pulse Resp B/P Pulse Ox O2 Delivery O2 Flow Rate FiO2 04/26/17 07:39 99 20 90 Room Air 04/26/17 07:26 98.3 134/80 Orders Complete Blood Count With Diff (04/26/17 07:44) Prothrombin Time / Inr (Pt) (04/26/17 07:44) Act Partial Throm Time (Ptt) (04/26/17 07:44) Labs Laboratory Tests Test 04/26/17 07:45 White Blood Count 5.3 TH/MM3 Red Blood Count 4.25 MIL/MM3 Hemoglobin 12.8 GM/DL Hematocrit 38.4 % Mean Corpuscular Volume 90.4 FL Mean Corpuscular Hemoglobin 30.0 PG Mean Corpuscular Hemoglobin 33.2 % Concent Red Cell Distribution Width 12.5 % Platelet Count 182 TH/MM3 Mean Platelet Volume 9.1 FL Neutrophils (%) (Auto) 55.5 % Lymphocytes (%) (Auto) 31.1 % Monocytes (%) (Auto) 7.1 % Eosinophils (%) (Auto) 5.5 % Basophils (%) (Auto) 0.8 % Neutrophils # (Auto) 3.0 TH/MM3 Lymphocytes # (Auto) 1.6 TH/MM3 Monocytes # (Auto) 0.4 TH/MM3 Eosinophils # (Auto) 0.3 TH/MM3 Basophils # (Auto) 0.0 TH/MM3 CBC Comment DIFF FINAL Differential Comment Prothrombin Time 11.1 SEC Prothromb Time International 1.0 RATIO Ratio Activated Partial 25.0 SEC Thromboplast Time MDM Medical Decision Making Medical Screen Exam Complete: Yes Emergency Medical Condition: Yes Interpretation(s) Vital Signs Date Time Temp Pulse Resp B/P Pulse Ox O2 Delivery O2 Flow Rate FiO2 04/26/17 07:39 99 20 90 Room Air 04/26/17 07:26 98.3 106 24 134/80 90 Differential Diagnosis Hemorrhoids, GI bleed Narrative Course Patient is a 71-year-old male with history of COPD, GERD, hyperlipidemia, emergency room with complaints of bright red blood per rectum. Patient reports that he noticed the symptoms after he had a large bowel movement today. Patient reports that he noticed a large amount of bright red blood. Reports history of hemorrhoids in the past. On exam, patient has heme-negative stools. Patient's stool is light brown in color. Patient does have nonthrombosed external hemorrhoids on exam. Plan to check hemoglobin as well as INR. We'll continue to monitor patient. Patients pulse ox is 90% on Room air - patient does have hx of COPD and was supposed to go to his lung rehab today around 8am but missed his appointment to come to the ER. Reports that this is his baseline pulse ox. Patient with a hemoglobin of 12.8, INR 1.0. This was reviewed with patient. Patient with most likely GI bleed secondary to hemorrhoids. Plan to start patient on a stool softener, will have him follow up with his naturopath as well as his primary care doctor. VSS. Signs and symptoms of when to return to the emergency room was reviewed patient in detail. Diagnosis Primary Impression: External hemorrhoid Additional Impression: GI bleed Qualified Code: K92.2 - Gastrointestinal hemorrhage, unspecified gastrointestinal hemorrhage type Patient Instructions: General Instructions Additional Instructions: Please up with your primary care doctor in 2-3 days Please up with your naturopath as soon as possible Return to emergency room if symptoms worsen or progress Return to the emergency room as needed Disposition: 01 DISCHARGE HOME Condition: Stable Lora Mcnamara DO April 26, 2017 07:50
[2017-04-26 07:55] LABS: BASOPHIL % 0.8 % (0.0-2.0); EOSINOPHIL # 0.3 TH/MM3 (0-0.4); EOSINOPHIL % 5.5 % (0.0-4.0); HEMATOCRIT 38.4 % (39.0-51.0); LYMPH % 31.1 % (9.0-44.0); LYMPHOCYTE # 1.6 TH/MM3 (1.0-4.8); MEAN CELL VOLUME 90.4 FL (80.0-100.0); MEAN CORPUSCULAR HGB CONC 33.2 % (32.0-36.0); MONO % 7.1 % (0.0-8.0); NEUT % 55.5 % (16.0-70.0); PLATELET COUNT 182 TH/MM3 (150-450); RED BLOOD COUNT 4.25 MIL/MM3 (4.50-5.90); RED CELL DISTRIBUTION WIDTH 12.5 % (11.6-17.2); WHITE BLOOD COUNT 5.3 TH/MM3 (4.0-11.0)
[2017-04-26 07:56] LABS: HEMO FLAGS DIFF FINAL
[2017-04-26 08:14] LABS: PROTHROMBIN TIME - PATIENT 11.1 SEC (9.8-11.6)
== END 2017-04-26 08:40 | disposition home or self-care (01) ==
LOC: PHED 07:23
DX: K64.4 Residual hemorrhoidal skin tags (principal); K92.2 Gastrointestinal hemorrhage, unspecified; R42 Dizziness and giddiness; J44.9 Chronic obstructive pulmonary disease, unspecified; K21.9 Gastro-esophageal reflux disease without esophagitis; E78.5 Hyperlipidemia, unspecified; E78.00 Pure hypercholesterolemia, unspecified; G47.30 Sleep apnea, unspecified; Z79.899 Other long term (current) drug therapy
CPT/HCPCS: 85025; 85610; 85730; 99283

== ENCOUNTER → 2018-04-10 | Outpatient (CLI) | payer MEDICARE ==
[~2018-04-10] MED LIST changes: -LEVA500T PO; -OMEP20TA PO; +OMEP20TA93 PO; -PRED10 PO; -PULSE OXIMETER1 MI1
--- NOTE | 2018-04-11 12:06 | RSPPFT ---
DATE OF PROCEDURE: 04/10/18 COMMENTS: Spirometry shows FVC of 2.5 predicted 3.8, FEV1 of 1.3 predicted 3.0, FEV1/FVC ratio 55% predicted 78%. Air trapping is present with RV at 4.2 predicted 2.4. DLCO is 78% of predicted. IMPRESSION: On the basis of the above, patient has a moderately severe obstructive lung defect.
== END ==
LOC: HRSP 09:53
PROVIDERS: ATTEND Internal Medicine Pulmonary Disease
DX: J44.9 Chronic obstructive pulmonary disease, unspecified (principal)
CPT/HCPCS: 94060; 94726; 94729